=== PATIENT | female | born 1995 | race Hispanic/Latino ===

== ENCOUNTER 2018-03-14 15:39 | Emergency (ER) | payer SELFPAY ==
--- NOTE | 2018-03-14 17:37 | RAD ---
THREE VIEWS OF LEFT FOOT: Date: 03-14-18 Comparison: None. History: Left foot pain. FINDINGS: No displaced fracture or evidence of dislocation. IMPRESSION: No acute findings. POS: [facility]
== END 2018-03-14 16:58 | disposition home or self-care (01) ==
LOC: ERS 15:39
DX: S93.602A Unspecified sprain of left foot, initial encounter (principal); F17.210 Nicotine dependence, cigarettes, uncomplicated; F32.9 Major depressive disorder, single episode, unspecified; W19.XXXA Unspecified fall, initial encounter

== ENCOUNTER 2020-01-08 19:37 | Emergency (ER) | payer SELFPAY ==
[2020-01-08 20:06] LABS: Bilirubin Negative (Negative); Blood, Urine Negative (Negative); Clarity Clear (Clear); Glucose, Urine (Dipstick) Normal (Negative); Leukocyte Negative Leu/uL (Negative); Nitrite Negative (Negative); Protein, Urine (Dipstick) Negative (Neg-Trace); Urobilinogen Normal mg/dL (Less than 2)
[2020-01-08 20:20] LABS: Amphetamine Not Detected (NotDetected); Barbiturates Screen Not Detected (NotDetected); Benzodiazepine Screen Not Detected (NotDetected); Cocaine Metabolite Screen Not Detected (NotDetected); Medtox Control Line Valid? VALID (VALID); Medtox Reader # READER 4; Methadone Not Detected (NotDetected); Methamphetamine Not Detected (NotDetected); Opiate Screen Not Detected (NotDetected); Oxycodone Screen Not Detected (NotDetected); Phencyclidine (PCP) Not Detected (NotDetected); THC/Cannabinoid Screen Detected (NotDetected); Tricyclic Screen Not Detected (NotDetected)
[2020-01-08 20:36] LABS: Pregnancy Test - Urine (BHCG) Negative (Negative); Pregu Control Background? CLEAR/WHITE (CLR/WHITE); Pregu Control Bar Appear? YES (CONTROL BAR); Specific Gravity 1.003 (1.002-1.036)
[2020-01-08 20:43] LABS: #Basophils 0.1 thou/uL (0.0-0.2); #Eosinphils 0.1 thou/uL (0.0-0.7); #Monocytes 0.6 thou/uL (0.11-0.59); #Neutrophils 7.1 thou/uL (1.40-6.50); %Basophils 0.7 % (0.0-1.0); %Eosinophils 0.9 % (0.0-10.0); %Lymphocytes 27.7 % (21.0-51.0); %Monocytes 5.5 % (0.0-10.0); %Neutrophils 65.3 % (42.0-75.0); Hemoglobin 12.9 g/dL (12.0-16.0); Mean Corpuscular HGB CONC 33.6 g/dL (32.0-36.0); Mean Corpuscular Hemoglobin 32.6 pg (27.0-31.0); Mean Corpuscular Volume 96.9 fL (78.0-98.0); Platelet Count 320 thou/uL (130-400); RBC Distribution Width 15.3 % (11.5-14.5); Red Blood Cell (RBC) Count 3.94 mill/uL (4.20-5.40); White Blood Cell (WBC) Count 10.8 thou/uL (4.8-10.8)
[2020-01-08 20:55] LABS: Acetaminophen Less than 6.0 mcg/mL (10.0-30.0); Alcohol 239 mg/dL (Less than 10); Salicylate Less than 8.0 mg/dL (15.0-30.0)
[2020-01-08 20:56] LABS: ALT (SGPT) 24 U/L (8-55); AST (SGOT) 25 U/L (5-34); Albumin 4.2 g/dL (3.5-5.0); Alkaline Phosphatase 86 U/L (40-110); Anion Gap 17 mmol/L (10-20); BUN (Urea Nitrogen) 10 mg/dL (7.0-18.7); Bilirubin, Total 0.2 mg/dL (0.2-1.2); Calc. Creatinine Clearance 0 mL/min (70-130); Calcium 8.3 mg/dL (7.8-10.44); Carbon Dioxide 18 mmol/L (22-29); Chloride 109 mmol/L (98-107); Estimated GFR-MDRD Greater than 90; Globulin 2.6 g/dL (2.4-3.5); Glucose 90 mg/dL (70-105); Potassium 3.8 mmol/L (3.5-5.1); Protein, Total 6.8 g/dL (6.0-8.3); Sodium 140 mmol/L (136-145)
[2020-01-08] MEDS ORDERED: Lidocaine 1% w/Epinephrine 1:100K 20 ML VIAL ONE (21:18)
[2020-01-09] MEDS ORDERED: Acetaminophen 500 MG TAB ONE (00:17)
== END 2020-01-09 09:03 ==
LOC: ERS 19:37
DX: S51.812A Laceration without foreign body of left forearm, initial encounter (principal); F32.9 Major depressive disorder, single episode, unspecified; F17.210 Nicotine dependence, cigarettes, uncomplicated; W26.8XXA Contact with other sharp object(s), not elsewhere classified, initial encounter
CPT/HCPCS: 12002; 36415; 80053; 80306; 80307; 81003; 81025; 84443; 85025; 93005; 96360

== ENCOUNTER 2020-04-16 11:39 | Emergency (ER) | payer SELFPAY ==
[2020-04-16] MEDS ORDERED: Lidocaine 1% w/Epinephrine 1:100K 20 ML VIAL ONE (12:07)
== END 2020-04-16 14:39 | disposition home or self-care (01) ==
LOC: ERS 11:39
DX: S81.852A Open bite, left lower leg, initial encounter (principal); F32.9 Major depressive disorder, single episode, unspecified; F17.210 Nicotine dependence, cigarettes, uncomplicated; W54.0XXA Bitten by dog, initial encounter
CPT/HCPCS: 12032

== ENCOUNTER 2020-04-18 16:35 | Emergency (ER) | payer SELFPAY | END 2020-04-18 18:30 | disposition home or self-care (01) | LOC: ERS 16:35 | DX: S81.852D Open bite, left lower leg, subsequent encounter (principal); F17.210 Nicotine dependence, cigarettes, uncomplicated; F32.9 Major depressive disorder, single episode, unspecified; W54.0XXD Bitten by dog, subsequent encounter | CPT/HCPCS: 99282 ==

== ENCOUNTER 2020-09-07 13:37 | Outpatient (CLI) | payer OTHER ==
--- NOTE | 2020-09-07 15:00 | ULT ---
EXAM: Complete obstetrical ultrasound PROVIDED CLINICAL HISTORY: anatomy COMPARISON: None. FINDINGS: Number of gestations: Single. Presentation: Cephalic. Placental location: Posterior Previa: No evidence for previa. Cervical length: 6.3 cm MATTIE: 18.8 cm. heart rate: 141 bpm. Biparietal diameter: 6.7 cm, 27 weeks 0 days Head circumference: 25 cm, 27 weeks 1 day Abdominal circumference: 23 cm, 27 weeks 3 days Femoral length: 4.9 cm, 26 weeks 3 days Estimated weight: 1007 g +/- 147 g SURVEY: head: Normal appearing. Cerebellum: Normal appearing. Cisterna magna: Normal appearing. Lateral ventricles: Normal appearing. 4 chamber heart: Normal appearing.. Stomach: Normal appearing. Kidneys: Normal appearing. Cord insertion: Normal appearing. Bladder: Normal appearing. Spine: Normal appearing. Lips and nose: Normal appearing. Extremities: Normal appearing. Three-vessel CORD: Normal appearing. The estimated gestational age by ultrasound is 27 weeks 0 days. IMPRESSION: 1. Single live intrauterine gestation with size and dates as above.
== END 2020-09-07 13:38 | disposition home or self-care (01) ==
LOC: BICULT 13:37
PROVIDERS: ATTEND Family Medicine
DX: Z34.02 Encounter for supervision of normal first pregnancy, second trimester (principal); Z3A.27 27 weeks gestation of pregnancy
CPT/HCPCS: 76805